=== PATIENT | female | born 1955 | race Caucasian/White ===

== ENCOUNTER 2020-04-12 10:36 | Outpatient (CLI) | payer BC, SELFPAY ==
--- NOTE | ~2020-04-12 | MM_ITS ---
EXAMINATION: MM screening [facility] w carlos HISTORY: Screening mammogram TECHNIQUE: Craniocaudal and mediolateral oblique 3-D tomosynthesis images were obtained and synthetic 2-D images were generated. CAD analysis was submitted and interpreted. COMPARISON: 12/26/2016, 12/20/2014 bilateral digital screening mammogram examinations BREAST PARENCHYMAL COMPOSITION: There are scattered areas of fibroglandular density. FINDINGS: There is no evidence of suspicious mass, calcification, or architectural distortion to sugg est malignancy in either breast. There has been no suspicious interval change. IMPRESSION: 1. No mammographic evidence of malignancy. 2. Recommend routine screening mammography in one year. BI-RADS Category 1: Negative Reviewed, dictated and finalized at location A. GER OB
== END 2020-04-12 10:37 | disposition home or self-care (01) ==
LOC: ANHIMG 10:40
PROVIDERS: PCP Physician Assistant; Visit Provider Physician Assistant
DX: Z12.31 Encounter for screening mammogram for malignant neoplasm of breast (principal)
CPT/HCPCS: 77063; 77067

== ENCOUNTER 2021-04-23 07:41 | Outpatient (CLI) | payer BC, SELFPAY ==
--- NOTE | ~2021-04-23 | MM_ITS ---
EXAMINATION: MM screening [facility] BI w carlos HISTORY: Screening mammogram TECHNIQUE: Craniocaudal and mediolateral oblique 3-D tomosynthesis images were obtained and synthetic 2-D images were generated. CAD analysis was submitted and interpreted. COMPARISON: 04/12/2020, 12/26/2016, 12/20/2014 BREAST PARENCHYMAL COMPOSITION: There are scattered areas of fibroglandular density. FINDINGS: There is no evidence of suspicious mass, calcification, or architectural distortion to sugg est malignancy in either breast. There has been no suspicious interval change. IMPRESSION: 1. No mammographic evidence of malignancy. 2. Recommend routine screening mammography in one year. BI-RADS Category 1: Negative Reviewed, dictated and finalized at location A. MENT CARVER
== END 2021-04-23 07:42 | disposition home or self-care (01) ==
PROVIDERS: PCP Physician Assistant; Visit Provider Physician Assistant
DX: Z12.31 Encounter for screening mammogram for malignant neoplasm of breast (principal)
CPT/HCPCS: 77063; 77067

== ENCOUNTER 2022-06-20 16:40 | Outpatient (CLI) | payer MEDICARE, SELFPAY ==
--- NOTE | ~2022-06-20 | MM_ITS ---
EXAMINATION: MM screening [facility] BI w carlos HISTORY: Screening mammogram TECHNIQUE: Craniocaudal and mediolateral oblique 3-D tomosynthesis images were obtained and synthetic 2-D images were generated. CAD analysis was submitted and interpreted. COMPARISON: 04/23/2021, 04/12/2020, 12/26/2016 bilateral screening mammogram examinations BREAST PARENCHYMAL COMPOSITION: There are scattered areas of fibroglandular density. FINDINGS: There is no evidence of suspicious mass, calcification, or architectural distortion to sugg est malignancy in either breast. There has been no suspicious interval change. IMPRESSION: 1. No mammographic evidence of malignancy. 2. Recommend routine screening mammography in one year. BI-RADS Category 1: Negative Reviewed, dictated and finalized at location A. WASHER
== END 2022-06-20 16:41 | disposition home or self-care (01) ==
LOC: ANHIMG 16:43
PROVIDERS: PCP Nurse Practitioner Family; Visit Provider Nurse Practitioner Family
DX: Z12.31 Encounter for screening mammogram for malignant neoplasm of breast (principal)
CPT/HCPCS: 77063; 77067

== ENCOUNTER 2023-09-30 08:51 | Outpatient (CLI) | payer MEDICARE, SELFPAY ==
--- NOTE | ~2023-09-30 | MM_ITS ---
EXAMINATION: MM screening [facility] BI w carlos HISTORY: Screening TECHNIQUE: Craniocaudal and mediolateral oblique 3-D tomosynthesis images were obtained and synthetic 2-D images were generated. CAD analysis was submitted and interpreted. COMPARISON: Comparison to multiple prior studies sequentially, with oldest reviewed study dated 12/20. BREAST PARENCHYMAL COMPOSITION: Not dense: There are scattered areas of fibroglandular density. FINDINGS: There is no evidence of suspicious mass, calcification, or architectural distortion to sugg est malignancy in either breast. There has been no suspicious interval change. IMPRESSION: 1. No mammographic evidence of malignancy. 2. Recommend routine screening mammography in one year. BI-RADS Category 1: Negative Reviewed, dictated and finalized at location A.
== END 2023-09-30 08:52 | disposition home or self-care (01) ==
PROVIDERS: PCP Nurse Practitioner Family; Visit Provider Nurse Practitioner Family
DX: Z12.31 Encounter for screening mammogram for malignant neoplasm of breast (principal)
CPT/HCPCS: 77063; 77067

== ENCOUNTER 2024-11-16 08:37 | Outpatient (CLI) | payer MEDICARE, SELFPAY ==
--- NOTE | ~2024-11-16 | DEXA_ITS ---
Bone Density Report Name: AD SEGURA Age: 69 Sex: Female Ethnicity: White Date of : 1955 Indication: postmenopausal; screening for osteoporosis; height loss; Referring Provider: SEAMUS DOS SANTOS Study: Bone densitometry was performed. Exam Date: November 16, 2024 Accession number: [id number] Bone Density: Region BMD T-score Z-score Classification AP Spine(L1-L4) 1.135 0.8 2.8 Normal Femoral Neck (Left) 0.866 0.2 1.8 Normal Total Hip (Left) 1.127 1.5 2.9 Normal Femoral Neck (Right) 0.818 -0.3 1.4 Normal Total Hip (Right) 1.016 0.6 2.0 Normal Total Hip Mean 1.072 1.1 2.5 Normal World Health Organization criteria for BMD impression classify patients as: Normal (T-score at or above -1.0), Osteopenia (T-score between -1.0 and -2.5), or Osteoporosis (T-score at or below -2.5). 10-year Fracture Risk: FRAX not reported because: All T-scores for Spine Total, Hip Total, Femoral Neck at or above -1.0 Clinical Information Provided by Patient: Has used the following medications: Vitamin D Patient maximum height was 63 Menopause Age: 56 Does not regularly consume dairy products Drinks caffeinated beverages Onset of menses at age 11 Number of children 3 Impression: The patient has normal bone mass. Discussion: BONE DENSITY IS ABOVE THE MINIMUM DESIRABLE LEVEL AT ALL SKELETAL SITES TESTED. This patient?s bone mineral density is above the minimum desirable level (T-score -1.0 or better) at all sites measured. The patient should follow a healthful lifestyle (good nutrition with adequate calcium and vitamin D, and appropriate weight-bearing exercise). Follow-Up: Consider repeating this study in 5 years or sooner if there is some new clinical indication. Reported by: YVONNE on 11/16/2024 9:18:00 AM. Reviewed, dictated and finalized at location A.
--- OUTSIDE RECORDS SUMMARY | 2024-11-16 08:43 | XMS_ITS | Encounter Summary ---
Author Organization [facility] Address [address] [place] [address] Care Team Providers Care Electrical Accessories I Assembler Name Role Phone Imelda Pérez PA-C Primary Care Provider [phone]- [phone] Encounter Details Date Type Department Care Team (Late st Contact Info) Description 04/26/2024 Lab Requisition [facility] - DermPath Lab [address] [facility] [place] [id number] Elva Tejada MD [address] [facility] [address] DEPT [place] [address] Social History Tobacco Use Types Packs/Day Years Used Date Smoking Tobacco: Never Smokeless Tobacco: Never Comments No Sex and Gender Information Value Date Recorded Sex Assigned at Not on file Legal Sex Female 8:34 AM CDT Gender Identity Not on file Sexual Orientation Not on file documented as of this encounter Plan of Treatment Not on file documented as of this encounter Procedures Procedure Name Priority Date/Time Associated Diagnosis Comments DERMATOPATHOLOGY Routine 04/26/2024 1:07 PM CHARGING MANIPULATOR documented in this encounter Results * DERMATOPATHOLOGY (04/26/2024 1:07 PM CHARGING MANIPULATOR) Case Report Dermatopathology Report Case: [id number] Authorizing Provider: Elva Tejada MD Collected: 04/26/2024 01:07 PM Ordering Location: [facility] - Received: 04/26/2024 04:22 PM DermPath Lab Pathologist: Sade Monteiro MD Specimen: Skin, left forearm 1:54 PM CHARGING MANIPULATOR DERMATOPATHOLOGY LABORATORY Final Diagnosis Specimen A. 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 The specimen consists of a shave biopsy measuring 5x3x1 mm. Jar 0. 1:54 PM [facility] DERMATOPATHOLOGY LABORATORY Microscopic Description Specimen A. SKIN, left forearm: In the dermis, there are dilated vascular spaces surrounded by widely spaced endothelial cells. 1:54 PM [facility] DERMATOPATHOLOGY LABORATORY Disclaimer An external and internal positive and negative controls are appropriate for the histochemical, immunohistochemical and immunofluorescence stain(s) in this case (if any), except where stated explicitly. The performance characteristics of the stain(s) cited in this report were developed and its performance characteristic determined by the Dermatopathology Laboratory at [facility], directed by Dr. Wade Vargas. These tests need not be, and therefore are not, approved by the [place] Food and Drug Administration. The tests are used for clinical purposes. Billing Codes Specimen Charges Stain Charges 72577 1 1:54 PM [facility] DERMATOPATHOLOGY LABORATORY Embedded Images 1:54 PM [facility] DERMATOPATHOLOGY LABORATORY Pathology/Cytolo gy TISSUE SPECIMEN FROM SKIN / Unknown 04/26/2024 1:07 PM CHARGING MANIPULATOR 04/26/2024 4:22 PM [facility] us Elva Tejada MD LAB - PATHOLOGY/CYTOLOGY ORD ERABLES Final Result DERMATOPATHOLOGY LABORATORY [facility] - Department of Dermatology [address] [phone] documented in this encounter Visit Diagnoses Not on filedocumented in this encounter Care Teams Electrical Accessories I Assembler Relationship Specialty Start Date End Date Imelda Pérez PA-C PCP - General Physician Industrial Roofer Helper 01/08/17 documented as of this encounter
--- OUTSIDE RECORDS SUMMARY | 2024-11-16 08:43 | XMS_ITS | Encounter Summary ---
Author Organization [facility] Healthcare Address [address] [place] [address] Care Team Providers Care Home Economics Teacher Name Role Phone Imelda Pérez Primary Care Provider + Encounter Details Date Type Department Care Team (Late st Contact Info) Description 09/24/2014 Orders Only [facility] [place] Health Information Management [address] [place] [id number] Scanning, Provider Social History Tobacco Use Types Packs/Day Years Used Date Smoking Tobacco: Never Assessed Comments Unknown Sex and Gender Information Value Date Recorded Sex Assigned at Not on file Legal Sex Female 3:43 AM TECHNICAL SOLUTIONS CONSULTANT Gender Identity Not on file Sexual Orientation Not on file documented as of this encounter Plan of Treatment Not on file documented as of this encounter Procedures Procedure Name Priority Date/Time Associated Diagnosis Comments SCAN - RADIOLOGY/IMAGING 09/24/2014 documented in this encounter Results * SCAN - RADIOLOGY/IMAGING (09/24/2014) Anatomical Region Laterality Modality Other us Provider Scanning Final Result documented in this encounter Visit Diagnoses Not on filedocumented in this encounter Care Teams Home Economics Teacher Relationship Specialty Start Date End Date Imelda Pérez PA PCP - General Radio News Anchor 06/30/17 documented as of this encounter
--- OUTSIDE RECORDS SUMMARY | 2024-11-16 08:43 | XMS_ITS | Clinical Summary ---
Author Organization [facility] [place] [address] Address [address] [place] [address] Care Team Providers Care Water Taxi Boat Mate Name Role Phone Imelda Pérez Primary Care Provider + Allergies Active Allergy Reactions Criticality Noted Date Comments Nifedipine Unknown 10/30/2017 Medications glimepiride (AMARYL) 1 mg tabletIndications: type 2 diabetes mellitus TK 1 T PO QD 1 09/17/19 18 Active fluticasone (FLONASE) 50 mcg/actuation nasal spray fluticasone 50 mcg/actuation nasal spray,suspension Active olopatadine (PATANOL) 0.1 % ophthalmic solutionIndication s:Allergic Conjunctivitis 98 10/29/19 18 Active metroNIDAZOLE (METROGEL) 0.75 % gelIndications:Acn e Rosacea metronidazole 0.75 % topical gel Active lisinopril (PRINIVIL,ZESTRIL) 40 mg tablet TK 1 T PO D 1 10/20/19 18 Active atenolol-chlorthal idone (TENORETIC) 50-25 mg per tablet atenolol 50 mg-chlorthalidone 25 mg tablet Active amLODIPine (NORVASC) 10 mg tablet amlodipine 10 mg tablet TAKE 1 TABLET BY MOUTH EVERY DAY Active atorvastatin (LIPITOR) 40 mg tablet 1 09/27/19 18 Active VITAMIN D2 50,000 unit capsule 1 09/27/19 18 Active metFORMIN (GLUCOPHAGE) 1,000 mg tablet TK 1 T PO BID 1 10/20/19 18 Active fluocinonide (LIDEX) 0.05 % gel fluocinonide 0.05 % topical gel APPLY TO ARMS TWICE DAILY Active Active Problems Problem Noted Date Diagnosed Date Left ventricular hypertrophy 07/26/2021 Essential hypertension 12/18/2017 Surgical History Surgery Date Site/Laterality Comments HIP SURGERY CATARACT EXTRACTION Medical History Medical History Date Comments Hypertension Hyperlipidemia Diabetes mellitus (HCC) Sinusitis Cataracts, bilateral Family History Medical History Relation Name Comments Intracerebral hemorrhage Father Car Accident Mother Hypertension Other Relation Name Status Comments Father Mother Other Social History Tobacco Use Types Packs/Day Years Used Date Smoking Tobacco: Never Smokeless Tobacco: Never Alcohol Use Standard Drinks/Week Comments No 0 (1 standard drink = 0.6 oz pur e alcohol) Personal Safety Answer Date Recorded Getting School Help Needed Not on file 07/11 Comments Unknown Sex and Gender Information Value Date Recorded Sex Assigned at Not on file Legal Sex Female 3:43 AM CASH MANAGEMENT OFFICER Gender Identity Not on file Sexual Orientation Not on file Obstetrics History Last Filed Vital Signs Vital Sign Reading Time Taken Comments Blood Pressure 136/64 07/26/2021 11:49 AM CDT Pulse 53 07/26/2021 11:49 AM CDT Temperature - - Respiratory Rate - - Oxygen Saturation 95% 07/26/2021 11:49 AM CDT Inhaled Oxygen Concentration - - Weight 63 kg (139 lb) 07/26/2021 11:49 AM CDT Height 157.5 cm (5' 2) 07/26/2021 11:49 AM CDT Body Mass Index 25.42 07/26/2021 11:49 AM CDT Plan of Treatment Not on file Insurance [facility]–1983 Care Teams Water Taxi Boat Mate Relationship Specialty Start Date End Date Imelda Pérez PA PCP - General Hospice Music Therapy 06/30/17
--- OUTSIDE RECORDS SUMMARY | 2024-11-16 08:43 | XMS_ITS | Encounter Summary ---
Author Organization [facility] Healthcare Address [address] [place] [address] Care Team Providers Care Route Sales Trainee Name Role Phone Imelda Pérez Primary Care Provider + Encounter Details Date Type Department Care Team (Late st Contact Info) Description 09/25/2014 Orders Only [facility] [place] Health Information Management [address] [place] [phone] Scanning, Provider Social History Tobacco Use Types Packs/Day Years Used Date Smoking Tobacco: Never Assessed Comments Unknown Sex and Gender Information Value Date Recorded Sex Assigned at Not on file Legal Sex Female 3:43 AM STAVE LOG RIPSAW OPERATOR Gender Identity Not on file Sexual Orientation Not on file documented as of this encounter Plan of Treatment Not on file documented as of this encounter Procedures Procedure Name Priority Date/Time Associated Diagnosis Comments SCAN - RADIOLOGY/IMAGING 09/25/2014 documented in this encounter Results * SCAN - RADIOLOGY/IMAGING (09/25/2014) Anatomical Region Laterality Modality Other us Provider Scanning Edited Result - Final documented in this encounter Visit Diagnoses Not on filedocumented in this encounter Care Teams Route Sales Trainee Relationship Specialty Start Date End Date Imelda Pérez PA PCP - General Awning Hanger Helper 06/30/17 documented as of this encounter
--- OUTSIDE RECORDS SUMMARY | 2024-11-16 08:43 | XMS_ITS | Clinical Summary ---
Author Organization [facility] Address [facility] [place] [address] Care Team Providers Care Assembler Molded Frames Name Role Phone None, Provider MD Primary Care Provider Unavaila ble Social History Tobacco Use Types Packs/Day Years Used Date Smoking Tobacco: Never Assessed Comments Unknown Sex and Gender Information Value Date Recorded Sex Assigned at Not on file Legal Sex Female 7:24 PM CDT Gender Identity Not on file Sexual Orientation Not on file Plan of Treatment Health Maintenance Due Date Last Done Comments Colorectal Cancer Screening Colonoscopy (10 Years) 1956 Hepatitis C 1974 Mammogram Screening 1996 Pneumococcal Vaccine: 50+ Years (2 of 2 - PCV) 06/04/2017 06/04/2016, 04/29/2016 Dexa Scan (General) 2021 COVID-19 Vaccine ( season) 2024 10/03/2021, 08/20/2020, 08/20/2020, Additional history exists DTaP, Tdap and Td Vaccines (2 - Td or Tdap) 04/29/2026 04/29/2016 RSV Immunization or 60+ Years (1 - 1-dose 75+ series) 10/12/2031 Zoster Vaccines Completed 06/26/2021, 02/10, 04/18/2015, Additional history exists Meningococcal B Vaccine Aged Out No l onger eligible based on patient's age to complete this topic Meningococcal Vaccine Aged Out No jeff chanel eligible based on patient's age to complete this topic RSV Immunizations Under 20 Months Aged Out No longer eligible based on patient's age to complete this topic Care Teams Assembler Molded Frames Relationship Specialty Start Date End Date None, Provider, PCP - General UNKNOWN PHYSICIAN SPECIALTY 08/22/23
--- OUTSIDE RECORDS SUMMARY | 2024-11-16 08:43 | XMS_ITS | Clinical Summary ---
Author Organization [facility] [employer] [employer] Address [address] [place] [address] Care Team Providers Care Agricultural Education Instructor Name Role Phone Imelda Pérez PA-C Primary Care Provider +1- [phone] Source Comments [facility] [employer],non-owned Affiliates and Associated Physician Practices is amultiple site organization consisting of ambulatory clinics and hospital sitesin [place], [place], [place]. This disclosure is being madepursuant to the Care Everywhere program and may not contain all information available regarding this patient. Last updated 18.[facility] [employer] Allergies No known active allergies Medications * Be aware that medications may not be up to date on this document. Alwaysverify current medications with the patient. METFORMIN HCL PO Active ATENOLOL PO Active LISINOPRIL PO Active ATORVASTATIN CALCIUM PO Active predniSONE (DELTASONE) 10 MG tablet 5 tab PO QD x2 day,then 4 tab PO QD x2 day,then 3 tab PO QD x2 days,then 2 tab PO QD x2 day,then 1 tab PO QD x2 days,Take with food 30 Tab 01/08/2017 Active triamcinolone acetonide (KENALOG) 0.1 % ointment Apply to affected area 2 times daily 15 g 01/08/2017 Active Family History Medical History Relation Name Comments CAD (Coronary Artery Disease) Father CVA Father Hypertension Mother Diabetes - Type 2 Paternal Grandmother Relation Name Status Comments Father Mother Paternal Grandmother Social History Tobacco Use Types Packs/Day Years Used Date Smoking Tobacco: Never Smokeless Tobacco: Never Comments No Sex and Gender Information Value Date Recorded Sex Assigned at Not on file Legal Sex Female 8:34 AM CDT Gender Identity Not on file Sexual Orientation Not on file Last Filed Vital Signs Vital Sign Reading Time Taken Comments Blood Pressure 126/70 01/08/2017 9:39 AM CDT Pulse 65 01/08/2017 9:39 AM CDT Temperature 36.9 C (98.5 F) 01/08/2017 9:39 AM CDT Respiratory Rate 16 01/08/2017 9:39 AM CDT Oxygen Saturation 99% 01/08/2017 9:39 AM CDT Inhaled Oxygen Concentration - - Weight 68.5 kg (151 lb) 01/08/2017 9:39 AM CDT Height 158.8 cm (5' 2.5) 01/08/2017 9:39 AM CDT Body Mass Index 27.18 01/08/2017 9:39 AM CDT Plan of Treatment Health Maintenance Due Date Last Done Comments BONE DENSITY TESTING 1955 COLOGUARD (AGES 45-75) - COL ON CA SCREENING 1955 COLON MONITORING 1955 COLONOSCOPY - COLON CA SCREENING 1956 CT COLONOGRAPHY - COLON CA SCREENING 1955 Colorectal Cancer Screening 1955 FIT - COLON CA SCREENING 1955 FLEX SIG - COLON CA SCREENING 1955 MAMMOGRAM 1955 HEPATITIS C SCREENING 10/07/1974 DTAP/TDAP/TD VACCINES (1 - Tdap) 10/12/1975 PNEUMOCOCCAL VACCINE 50+ (1 of 1 - PCV) 2006 ZOSTER VACCINE (1 of 2) 2006 SCREENING FOR DIABETES 01/08/2017 COVID-19 VACCINE (1 - 2023-2 5 season) 2024 DEPRESSION SCREENING 05/12/2024 INFLUENZA VACCINE (Season Ended) 2025 Respiratory Syncytial Virus (RSV) Vaccine Pt: or over 60 yrs (1 - 1-dose 75+ series) 10/12/2031 HEPATITIS B VACCINE Aged Out No longe r eligible based on patient's age to complete this topic HIB VACCINE Aged Out No longer eligi ble based on patient's age to complete this topic HPV VACCINE Aged Out No longer eligi ble based on patient's age to complete this topic MENINGOCOCCAL (Group B) VACC INE SHARED DECISION-MAKING Aged Out No longer eligibl e based on patient's age to complete this topic MENINGOCOCCAL GROUPS A/C/Y/W VACCINE Aged Out No longer eligible b ased on patient's age to complete this topic Care Teams Agricultural Education Instructor Relationship Specialty Start Date End Date Imelda Pérez PA-C PCP - General Physician Photovoltaic Testing Technician 01/08/17
--- OUTSIDE RECORDS SUMMARY | 2024-11-16 08:43 | XMS_ITS | Encounter Summary ---
Author Organization [facility] Healthcare Address [address] [place] [address] Care Team Providers Care Content Director Name Role Phone Imelda Pérez Primary Care Provider + Encounter Details Date Type Department Care Team (Late st Contact Info) Description 04/04/2006 [place] Only [facility] [place] [address] [place] [id number] Scanning, Provider Social History Tobacco Use Types Packs/Day Years Used Date Smoking Tobacco: Never Assessed Comments Unknown Sex and Gender Information Value Date Recorded Sex Assigned at Not on file Legal Sex Female 3:43 AM LICENSED MASTER SOCIAL WORKER Gender Identity Not on file Sexual Orientation Not on file documented as of this encounter Plan of Treatment Not on file documented as of this encounter Procedures Procedure Name Priority Date/Time Associated Diagnosis Comments SCAN - RADIOLOGY/IMAGING 04/04/2006 documented in this encounter Results * SCAN - RADIOLOGY/IMAGING (04/04/2006) Anatomical Region Laterality Modality Other us Provider Scanning Final Result documented in this encounter Visit Diagnoses Not on filedocumented in this encounter Care Teams Content Director Relationship Specialty Start Date End Date Imelda Pérez PA PCP - General Electrical Discharge Machine Operator 06/30/17 documented as of this encounter
--- OUTSIDE RECORDS SUMMARY | 2024-11-16 08:43 | XMS_ITS | Encounter Summary ---
Author Organization [facility] Healthcare Address [address] [place] [address] Care Team Providers Care Operator Lights Name Role Phone Imelda Pérez Primary Care Provider + Encounter Details Date Type Department Care Team (Late st Contact Info) Description 06/03/2001 Orders Only [facility] [place] Health Information Management [address] [place] [id number] Scanning, Provider Social History Tobacco Use Types Packs/Day Years Used Date Smoking Tobacco: Never Assessed Comments Unknown Sex and Gender Information Value Date Recorded Sex Assigned at Not on file Legal Sex Female 3:43 AM JUNIOR HIGH SCHOOL PRINCIPAL Gender Identity Not on file Sexual Orientation Not on file documented as of this encounter Plan of Treatment Not on file documented as of this encounter Procedures Procedure Name Priority Date/Time Associated Diagnosis Comments CARDIOLOGY DOCUMENT SCAN 06/03/2001 documented in this encounter Results * Cardiology Document Scan (06/03/2001) Anatomical Region Laterality Modality Other us Provider Scanning CV CARDIAC SERVICES PROCEDURES Final Result documented in this encounter Visit Diagnoses Not on filedocumented in this encounter Care Teams Operator Lights Relationship Specialty Start Date End Date Imelda Pérez PA PCP - General Motion Picture Printer 06/30/17 documented as of this encounter
--- OUTSIDE RECORDS SUMMARY | 2024-11-16 08:43 | XMS_ITS | Referral Summary ---
Author Organization [facility] [address] Address [address] [place] [address] Care Team Providers Care Dock Guard Name Role Phone Imelda Pérez Primary Care [...] Left ventricular hypertrophy 07/26/2021 Essential hypertension 12/18/2017 Social History Tobacco Use Types Packs/Day Years [...] on file Legal Sex Female 3:43 AM ICE GUARD TESTER Gender Identity Not on file Sexual Orientation [...] Plan of Treatment Not on file Insurance [employer] [place] Care Teams Dock Guard Relationship Specialty Start Date End Date Imelda Pérez PA PCP - General Railroad Operating Engineer 06/30/17
== END 2024-11-16 08:38 | disposition home or self-care (01) ==
PROVIDERS: PCP Nurse Practitioner Family; Visit Provider Nurse Practitioner Family
DX: Z78.0 Asymptomatic menopausal state (principal)
CPT/HCPCS: 77080